=== PATIENT | female | born 1970 | race Caucasian/White ===

== ENCOUNTER 2018-02-04 18:33 | Emergency (ER) | payer MEDICARE, OTHER ==
[~2018-02-04] VITALS: Ht 162.6 cm; Wt 63.5 kg
[2018-02-04] MEDS ORDERED: CATAPRES0.1 MG PO (18:55)
[2018-02-04] MEDS ORDERED: GABAPENTIN300 MG PO (18:56)
[2018-02-04] MEDS ORDERED: CLONAZEPAM1 MG PO (18:56)
[2018-02-04] MEDS ORDERED: PROTONIX40 MG PO (20:56)
[2018-02-04] MEDS ORDERED: ZOFRAN ODT4 MG PO (20:56)
== END 2018-02-04 21:15 | disposition home or self-care (01) ==
LOC: ED 18:33
DX: K52.9 Noninfective gastroenteritis and colitis, unspecified (principal); F31.9 Bipolar disorder, unspecified; Z88.2 Allergy status to sulfonamides; Z79.899 Other long term (current) drug therapy
CPT/HCPCS: 80053; 81001; 84703; 85025; 85610; 85730; 86850; 86900; 86901; 96374; 96375; 99284; G0480; J2405; J2765; J7030

== ENCOUNTER 2020-06-22 09:10 | Emergency (ER) | payer MEDICARE, OTHER ==
[~2020-06-22] VITALS: Ht 162.6 cm; Wt 63.5 kg
[~2020-06-22 09:10] MED LIST: CATAPRES0.1 MG PO; CLONAZEPAM1 MG PO; GABAPENTIN300 MG PO; PROTONIX40 MG PO; ZOFRAN ODT4 MG PO
[2020-06-22] MEDS ORDERED: PROPRANOLOL HCL20 MG PO (09:28)
[2020-06-22] MEDS ORDERED: TRAZODONE HCL50 MG PO (09:28)
== END 2020-06-22 11:37 | disposition home or self-care (01) ==
LOC: ED 09:10
DX: F31.9 Bipolar disorder, unspecified (principal); Z88.2 Allergy status to sulfonamides; Z79.899 Other long term (current) drug therapy
CPT/HCPCS: 99284